=== PATIENT | female | born 1950 | race Caucasian/White ===

== ENCOUNTER → 2024-05-19 | Outpatient (CLI) | payer MEDICARE, SELFPAY ==
[2024-05-19 14:36] LABS: Free T4 (Free Thyroxine) 1.16 ng/dL (0.89-1.76); Thyroid Stimulating Hormone 0.02 uIU/mL (0.55-4.78); Vitamin D 25 Hydroxy Total 93.2 ng/mL (7.3-40.2)
[2024-05-30 06:50] LABS: Estradiol, Ultrasensitive* 3 pg/mL; Estrogen, Total, Serum* <25 pg/mL; Progesterone,LC/MS* <0.1 ng/mL; Testosterone,Total* 47 ng/dL (2-45)
== END | disposition home or self-care (01) ==
PROVIDERS: PCP Family Medicine; Referring Provider Family Medicine; Visit Provider Family Medicine
DX: E03.9 Hypothyroidism, unspecified (principal); C50.919 Malignant neoplasm of unspecified site of unspecified female breast; T45.2X1A Poisoning by vitamins, accidental (unintentional), initial encounter
CPT/HCPCS: 36415; 82306; 82670; 82672; 84144; 84403; 84439; 84443

== ENCOUNTER 2024-06-15 18:44 | Emergency (ER) | payer MEDICARE, SELFPAY ==
--- NOTE | 2024-06-15 18:54 | EKG_ITS ---
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
[2024-06-15 18:55] VITALS: BP 134/99; PULSE 84; RESP 18; O2SAT 100
--- NOTE | 2024-06-15 18:57 | EDNOTE_ITS ---
ED Syncope RME/HPI General Chief Complaint: Nausea/Vomiting/Diarrhea Stated Complaint: NAUSEA/VOMITING W/ SYNCOPE EPISODE Time Seen by Provider: 06/15/24 18:54 Arrival date/time: 06/15/24 18:44 RME / HPI RME / HPI narrative: Dr. Villarreal?s Main ED Evaluation: Patient is a 74-year-old female with history of GERD who was brought to the emergency department via EMS after syncopal episode at home. Patient was with family for Thanksgiving dinner when she suddenly became lightheaded and felt ill. She then sat down, became nauseated and vomited. Shortly thereafter she lost consciousness for about 5 minutes per family. When EMS arrived the patient was conscious, had normal vital signs save for mild hypertension. She was in no acute distress. Patient denies significant medical history other than GERD and a history of breast cancer. She states that she had 2 alcoholic drinks this evening but otherwise everything was as normal. Patient denies chest pain or equivalent, diarrhea, dyspnea, nausea or vomiting. She denies fevers, shakes, chills, sweats. Related Data Home Medications ?Medication ?Instructions ?Recorded ?Confirmed thyroid (pork) 60 mg tablet 120 mg PO QDAY 12/16/18 09/28/22 (Strong Thyroid) Methylcobalamin See Rx Instructions .Route .COMPLEX 06/26/22 09/28/22 pantoprazole 40 mg tablet,delayed 40 mg PO DAILY 06/26/22 09/16/22 release Previous Rx's ?Medication ?Instructions ?Recorded azithromycin 250 mg tablet 250 mg PO QDAY 6 days #6 tabs 06/16/24 (Zithromax) Allergies Allergy/AdvReac Type Severity Reaction Status Date / Time codeine Allergy Verified 09/28/22 14:57 Review of Systems Review of Systems Systems Reviewed: All systems reviewed, normal except as documented Past Medical History Past Medical History NEUROLOGIC: Positive Neurological Disorders, Peripheral Neuropathy and Migraine; Negative Seizures CARDIAC: Positive Hypotension; Negative Cardiac Disorders, Hypercholesterolemia, Congestive Heart Failure or Hypertension RESPIRATORY: Negative Chronic Obstructive Pulmonary Disease (COPD), Asthma or Sleep Apnea GASTROINTESTINAL: Positive Gastrointestinal Disorders (DYSPHAGIA) GENITOURINARY: Negative Genitourinary Disorders or Renal Disease MUSCULOSKELETAL: Positive Musculoskeletal Disorders ENDOCRINE: Positive Hypoglycemia and Hypothyroidism; Negative Diabetes Mellitus Type 1 or Diabetes Mellitus Type 2 HEMATOLOGIC: Positive Anemia; Negative Sickle Cell Disease OTHER HISTORY: Negative Blood Transfusions, Anesthesia Reactions or Cancer Surgical History SURGICAL: Positive Hysterectomy; Negative Cardiac Surgery Social History SMOKING STATUS: Never smoker ED Exam Narrative Physical exam: GENERAL APPEARANCE: alert and oriented x 4, well-developed, well-nourished, appears lightheaded, no acute distress VITALS: All vitals were reviewed and the pulse ox is % on room air, which is normal according to my interpretation. HEENT: Normocephalic, atraumatic; pupils equal, round, reactive to light; EOMI; mucous membranes pink, moist; oropharynx clear NECK: Supple LUNGS: CTABL; no wheezes, no rales, no rhonchi HEART: Regular rate, regular rhythm; normal S1, S2; no murmurs ABDOMEN: non distended; normal BS; soft, no tenderness, no guarding, no rebound; no masses, no organomegaly, no hernia BACK: no CVA tenderness EXTREMITIES: atraumatic; no edema NEUROLOGIC: awake; alert and oriented x4; cranial nerves II-XII grossly intact; no focal sensory or motor deficits PSYCHIATRIC: appropriate mood and affect SKIN: warm, dry, normal color; no rashes Course Course Course Narrative: CXR is ordered to r/o aspiration pneumonia. Quality Measures none Orders Category Date Time Status CT Screening NOW Care 06/15/24 20:20 Completed Intensive Care Medicine Specialist STAT Care 06/15/24 18:55 Completed EKG (ED ONLY) *Do not use* NOW Care 06/15/24 18:55 Completed Insert IV STAT Care 06/15/24 18:55 Completed Orthostatic Vitals NOW Care 06/15/24 18:[address] angio chest Stat Exams 06/15/24 20:20 Completed EKG (ED Only) Stat Exams 06/15/24 18:54 Draft XR chest 1V portable Stat Exams 06/15/24 18:56 Completed Alcohol, Blood Medical Stat Lab 06/15/24 19:36 Completed B-Type Natriuretic Peptide Stat Lab 06/15/24 19:36 Completed CBC Stat Lab 06/15/24 19:36 Completed Comprehensive Metabolic Panel Stat Lab 06/15/24 19:36 Completed Drug Screen,Urine Stat Lab 06/15/24 20:19 Completed Free T4 (Free Thyroxine) Stat Lab 06/15/24 19:36 Completed Lipase Stat Lab 06/15/24 19:36 Completed Magnesium Stat Lab 06/15/24 19:36 Completed Partial Thromboplastin Time Stat Lab 06/15/24 20:53 Completed Prothrombin Time with INR Stat Lab 06/15/24 20:53 Completed Thyroid Stimulating Hormone Stat Lab 06/15/24 19:36 Completed Troponin I Stat Lab 06/15/24 19:36 Completed Urinalysis Stat Lab 06/15/24 20:19 Completed Urinalysis, C/S if Indicated Stat Lab 06/15/24 20:19 Completed Sodium Chloride 0.9% 1000 ml [Ns] 1,000 ml Med 06/15/24 18:54 Discontinued IV 999 mls/hr Vital Signs Vital signs: Vital Signs Pulse Rate 84 06/15/24 18:55 Respiratory Rate 18 06/15/24 18:55 Blood Pressure 134/99 H 06/15/24 18:55 Pulse Oximetry (%) 100 06/15/24 18:55 Oxygen Delivery Method Room Air 06/15/24 18:55 Syncope MDM Narrative MDM Narrative:: Workup for syncope and chest pain has been ordered. Alcohol level ordered. Urine and urine drug screen. Patient data External records reviewed:: [facility] previous records (Per chart review, patient has no relevant previous ED visits or admissions to this facility.) Clinical information provided by:: patient Social determinants that could affect healthcare access:: none Patient has the following chronic illnesses:: breast CA, seizures, peripheral neuropathy, hypothyroidism How is presenting disease/condition affected by chronic disease/condition?: exacerbated by Evaluation data The following diagnostics were reviewed and interpreted by me:: lab results, radiology exam(s) and EKG tracing(s) Lab and/or radiology exams considered but not ordered:: none Interpretation Summary: CBC is normal, CMP is normal, PT and INR are normal, PTT is normal, UA shows 305 RBCs and 6 WBCs, UDS is negative, Blood alcohol is negative, according to my interpretation. EKG 19:45 normal sinus rhythm at 77. Normal axis no ectopy. No signs of acute ischemic changes. ----- [facility] Report Signed Patient: BHARTI SARAH [facility]. Record#: [id number] Birthdate: 1950 Age/Sex: 74 / F Location: [facility] Attending Dr: Ordering Physician: Oskar Villarreal MD Date of Service: 06/15/24 Procedure(s): XR chest 1V portable Accession Number(s): [id number] cc: Andrea Zapata MD; Randell Ritchie MD; Oskar Villarreal MD~ Examination: AP chest single view Technique: AP portable upright chest single view Exam date and time: June 15, 2024 1905 hrs. Comparison December 16, 2018 Indications: Chest pain today. Findings: Pulmonary scarring versus pneumonia left base, clinical correlation advised Normal heart size No pulmonary edema Moderate osteopenia Impression: Pulmonary scarring versus pneumonia left base, clinical correlation advised Dictated By: Randell Ritchie MD Signed By: <Electronically signed by Randell Ritchie MD in OV> 06/15/242130 ------- [facility] Report Signed Patient: BHARTI SARAH Record#: [id number] Birthdate: 1950 Age/Sex: 74 / F Location: [facility] Attending Dr: Ordering Physician: Oskar Villarreal MD Date of Service: 06/15/24 Procedure(s): CT angio chest Accession Number(s): [id number] cc: Andrea Zapata MD; Randell Ritchie MD; Oskar Villarreal MD~ Examination: CTA chest with intravenous contrast 2-D reconstructions 3-D reconstructions, vascular Date and time of exam: June 07, 2024 10:16 PM Indications: Chest pain nausea shortness of breath syncopal episode CTDI: vol (mGy) 7.94 DLP: (mGycm) 307 Technique: Multiple axial sections of the thorax have been obtained. 3 mm slice thickness, from below the hemidiaphragms to above the apices of the lungs. Mediastinal and lung density settings have been obtained. 2-D sagittal and coronal reconstructions. 3-D angiographic renderings, 3-D volume renderings, 3D post processing, vascular maximum intensity projections obtained. Contrast administered is 100 cc Isovue-370. Low dose protocols were performed. One or more of the following dose reduction techniques were used; automated exposure control, adjustment of the mA and/or KV according to patient size, use of iterative reconstruction technique. Findings: No thoracic aortic aneurysm dilatation or dissection No pulmonary artery emboli No paratracheal tracheobronchial or bronchopulmonary adenopathy 4 mm soft pulmonary nodule right midlung 6 mm pulmonary nodule right middle lobe 6 mm pulmonary nodule lingular segment left upper lobe Pneumonia left base Dilated bronchi in the lower lung zones No visualized liver or splenic lesion Absent gallbladder No pancreatic mass No hydronephrosis Sclerotic focus T7 vertebral body 20 mm Impression: Negative for pulmonary artery emboli Subcentimeter pulmonary nodules likely metastatic disease Left base pneumonia T7 osteoblastic metastasis Dictated By: Randell Ritchie MD Signed By: <Electronically signed by Randell Ritchie MD in OV> 06/15/24 4482 Medications / Prescriptions Medications or Prescriptions considered but not ordered:: none Medication administrations:: Medication Administration History Discontinued Medications Sodium Chloride (Ns) 1,000 mls @ 999 mls/hr IV .Q1H1M ONE Stop: 06/15/24 19:54 Last Infusion: 06/15/24 21:18 Dose: Infused Documented By: Admin: 06/15/24 19:59 Dose: 999 mls/hr Documented By: TIARA see above Consultations Consultation(s) initiated? (list below): No Diagnosis Syncope Differential Diagnosis: vasovagal syncope, pulmonary embolism, dehydration and other (pneumonia, worsening CA vs metastatic disease) Most likely diagnosis given after review of the tests above:: see below Admission Indicated Admission indicated?: not indicated Admission Request Was there a request for admission?: No Disposition Plan Disposition Plan: Discharge Discharge Attestation Discharge Attestation: The patient and all family members were given an opportunity to ask questions and understood the discharge instructions. Discharge instructions specifically effects, indications for sooner follow up or return to the emergency department, and the expected course of current diagnosis. Patient condition: Stable Discharge Plan Plan Patient Disposition: HOME (Self Care) Disposition Comment: Stable for discharge Patient condition on transfer: Stable Prescriptions/Referrals Prescriptions/Med Rec: New azithromycin [Zithromax] 250 mg tablet 250 mg PO QDAY 6 Days Qty: 6 0RF Rx Instructions: start on day 2 of therapy No Action thyroid (pork) [Strong Thyroid] 60 mg Tablet 120 mg PO QDAY pantoprazole 40 mg tablet,delayed release (DR/EC) 40 mg PO DAILY Patient Comments: TAKE 1 TABLET BY MOUTH EVERY MORNING Methylcobalamin See Rx Instructions .ROUTE .COMPLEX Rx Instructions: 150 mg intramuscular once per week Referrals: Andrea Zapata MD [Primary Care Provider] - In 1 week Problem List Clinical Impression: Syncope, Pneumonia, Lung mass Patient/Caregiver Discharge Instructions Discharge Activity: activity as tolerated Education Materials: Causes of Syncope, Diagnosing Syncope, Dizziness Fainting Poss Causes, ED Pneumonia (Adult) Additional Instructions: You should follow-up with your oncologist within the next week or so. Please tell him about your visit today and about the CAT scan of your chest Please take all of your antibiotics until they are completely gone even if you feel better before that Please return to the ER if you notice any worsening at all or if you develop any new medical problems Please be sure to follow-up with Dr. Ruvalcaba. He is a educational technologist. Print Language: Afghan Stand Alone Forms: [facility] Award Info., Patient Portal Info Letter
[2024-06-15 19:46] VITALS: BP 106/71; BP 113/69; BP 119/69; PULSE 84; PULSE 86; PULSE 99
[2024-06-15] MEDS: SODIUM CHLORIDE 0.9% 1000 ML 1,000 ML 999 ML IV (19:59)
[2024-06-15 20:01] VITALS: PULSE 81; RESP 18; TEMP 36.6; O2SAT 100
[2024-06-15 20:04] LABS: Basophils % (Auto) 0 % (0-2.5); Eosinophils % (Auto) 1 % (0-10); Hematocrit 42.2 % (36.0-46.0); Hemoglobin 14.4 g/dL (12.0-16.0); Immature Granulocytes % (Auto) 0 % (0-0); Immature Granulocytes Auto 0.02 Thou/mm3 (0.00-0.00); Lymphocytes # (Auto) 0.9 Thou/mm3 (1.0-4.8); Lymphocytes % (Auto) 11 % (10-50); Mean Corpuscular HGB Conc 34.1 g/dl (31.0-37.0); Mean Corpuscular Hemoglobin 31.9 pg (25.0-35.0); Mean Corpuscular Volume 93 fL (80-100); Monocytes # (Auto) 0.4 Thou/mm3 (0.0-0.8); Monocytes % (Auto) 4 % (0-12); Neutrophils # (Auto) 7.5 Thou/mm3 (1.8-7.7); Neutrophils % (Auto) 84 % (37-80); Nucleated Red Blood Cell % 0 /100 WBC (0); Platelet Count 252 Thou/mm3 (140-440); RDW Standard Deviation 45.1 fL (36.4-46.3); Red Blood Count 4.52 Miln/mm3 (4.00-5.20); White Blood Count 8.9 Thou/mm3 (3.6-11.0)
--- NOTE | 2024-06-15 20:20 | XR_ITS ---
Examination: CTA chest with intravenous contrast 2-D reconstructions 3-D reconstructions, vascular Date and time of exam: June 07, 2024 10:16 PM Indications: Chest pain nausea shortness of breath syncopal episode CTDI: vol (mGy) 7.94 DLP: (mGycm) 307 Technique: Multiple axial sections of the thorax have been obtained. 3 mm slice thickness, from below the hemidiaphragms to above the apices of the lungs. Mediastinal and lung density settings have been obtained. 2-D sagittal and coronal reconstructions. 3-D angiographic renderings, 3-D volume renderings, 3D post processing, vascular maximum intensity projections obtained. Contrast administered is 100 cc Isovue-370. Low dose protocols were performed. One or more of the following dose reduction techniques were used; automated exposure control, adjustment of the mA and/or KV according to patient size, use of iterative reconstruction technique. Findings: No thoracic aortic aneurysm dilatation or dissection No pulmonary artery emboli No paratracheal tracheobronchial or bronchopulmonary adenopathy 4 mm soft pulmonary nodule right midlung 6 mm pulmonary nodule right middle lobe 6 mm pulmonary nodule lingular segment left upper lobe Pneumonia left base Dilated bronchi in the lower lung zones No visualized liver or splenic lesion Absent gallbladder No pancreatic mass No hydronephrosis Sclerotic focus T7 vertebral body 20 mm Impression: Negative for pulmonary artery emboli Subcentimeter pulmonary nodules likely metastatic disease Left base pneumonia T7 osteoblastic metastasis
[2024-06-15 20:33] LABS: B-Type Natriuretic Peptide 34 pg/mL (0-100)
[2024-06-15 20:35] LABS: Collection Type, Urine Clean Catch
[2024-06-15 20:38] VITALS: BMI 20.7
[2024-06-15 20:49] LABS: Alanine Aminotransferase 15 U/L (10-49); Albumin, Serum 4.9 gm/dL (3.4-4.8); Alcohol, Blood Medical < 3.0 mg/dL (0-10.0); Alkaline Phosphatase 181 U/L (46-116); Anion Gap 9 (7-16); Aspartate Amino Transferase 17 U/L (0-34); BUN/Creatinine Ratio 35 Ratio (12-20); Bilirubin,Total 0.3 mg/dL (0.3-1.2); Blood Urea Nitrogen 28 mg/dL (9-23); Calcium 9.8 mg/dL (8.3-10.6); Calcium (Corrected) 9.8 mg/dL (8.5-10.1); Carbon Dioxide 26.6 mMol/L (20.0-31.0); Chloride 103 mMol/L (98-107); Creatinine (Component) 0.8 mg/dL (0.6-1.3); Estimated Creatinine Clearance 51.7 mL/min (>60); Globulin 2.5 gm/dL (2.3-3.5); Glucose 91 mg/dL (74-106); Lipase 60 U/L (12-53); Magnesium 2.4 mg/dL (1.6-2.6); Osmolality,Calculated 283 (275-295); Potassium 3.5 mMol/L (3.4-5.1); Sodium 139 mMol/L (136-145); Total Protein 7.4 gm/dL (5.7-8.2); eGFR > 60 See Note
[2024-06-15 20:49] LABS: Amphetamine/Methamp Scrn,U Negative (Negative); Barbiturate Screen,Urine Negative (Negative); Benzodiazepines Screen,Urine Negative (Negative); Benzoylecgonine Screen, Ur Negative (Negative); Bilirubin,Urine Negative (Negative); Blood,Urine 2+ (Negative); Clarity,Urine Clear (Clear/Hazy); Culture Indicated,Urine Not Indicated; Fentanyl Screen,Urine Negative (Negative); Glucose, Urine Negative (Negative); Ketones,Urine Trace (Negative); Leukocyte Esterase,Urine Positive (Negative); Nitrite,Urine Negative (Negative); Opiate Screen,Urine Negative (Negative); Protein,Urine Trace (Neg - Trace); RBC,Urine 305 /hpf (0-3); Specific Gravity,Urine 1.029 (1.001-1.035); Squamous Epithelial Cell,Urine < 1 /hpf (0-5); THC Screen,Urine Negative (Negative); Urobilinogen,Urine Negative mg/dL (0.0-1.0); WBC,Urine 6 /hpf (0-5)
[2024-06-15 21:10] LABS: Thyroid Stimulating Hormone < 0.01 uIU/mL (0.55-4.78); Troponin I < 0.020 ng/mL (0.0-0.045)
--- NOTE | 2024-06-15 21:23 | PC.NURSE ---
Pt resting quietly. no distress noted. Wating for CT.
[2024-06-15 21:28] LABS: Partial Thromboplastin Time 22.7 Seconds (22.0-36.0); Prothrombin Time 10.9 Seconds (9.0-12.2)
[2024-06-15 21:35] LABS: Free T4 (Free Thyroxine) 1.29 ng/dL (0.89-1.76)
[2024-06-15 22:21] VITALS: BP 126/81; PULSE 74; RESP 18; TEMP 36.7; O2SAT 99
[2024-06-16 00:29] VITALS: BP 146/88; PULSE 90; RESP 18; TEMP 36.7; O2SAT 100
--- NOTE | 2024-06-16 00:33 | PC.NURSE ---
ED MD with pt now.. all results are posted. Pt will be discharged.
[2024-06-16 01:09] VITALS: PULSE 85; RESP 18; O2SAT 98
== END 2024-06-16 01:11 | disposition home or self-care (01) ==
PROVIDERS: Emergency Provider Emergency Medicine; PCP Family Medicine
DX: J18.9 Pneumonia, unspecified organism (principal); C79.51 Secondary malignant neoplasm of bone; R91.8 Other nonspecific abnormal finding of lung field; R94.31 Abnormal electrocardiogram [ECG] [EKG]; I10 Essential (primary) hypertension; Z85.3 Personal history of malignant neoplasm of breast
CPT/HCPCS: 36415; 71045; 71275; 80053; 80307; 80320; 81001; 83690; 83735; 83880; 84439; 84443; 84484; 85025; 85610; 85730; 93005; 99285; A4649; J7030; Q9967; G0480

== ENCOUNTER → 2024-08-02 | Outpatient (CLI) | payer MEDICARE, SELFPAY ==
--- NOTE | 2024-08-02 14:30 | XR_ITS ---
Examination: Breast ultrasound, unilateral, left complete Date and time of exam: August 02, 2024 1436 hours INDICATIONS: Personal history right breast cancer with mastectomy, mammogram August 05, 2022 suspicious matter retroareolar region right breast left breast 3:00 nodule circumscribed Technique: Real-time schmidt scale ultrasonographic imaging performed left breast including all 4 quadrants as well as nipple retroareolar and axillary region. Findings: 12:00 cyst 6 x 4 mm 4:00 cyst 5 x 5 mm Retroareolar circumscribed oval mass 7 x 5 mm IMPRESSION: BI-RADS Category 3: Probably benign findings One additional 6 month left breast sonogram follow-up is needed to document stability of retroareolar circumscribed oval mass 7 x 5 mm
--- NOTE | 2024-08-02 15:00 | XR_ITS ---
Examination: Diagnostic digital mammography, unilateral, left Computer aided detection 3-D breast Tomosynthesis, unilateral Date and time of exam: August 02, 2024 1514 hours Compared to mammograms dating to June 23, 2022 INDICATIONS: Personal history right breast cancer mastectomy 2022 Technique: Nonmagnified MLO, CC views of the left breast have been obtained, reconstructed from 3-D Tomosynthesis images. R2 computer aided detection program utilized for evaluation of suspicious masses and/or abnormal calcifications. 3-D Tomosynthesis images obtained. Findings: The breast is heterogeneously dense, which may obscure small masses Numerous calcifications 8 mm focal asymmetry retroareolar region left breast, corresponding to retroareolar oval mass 7 x 5 mm left breast sonogram today Impression: BI-RADS category 3: Probably benign findings Recommend 1 additional 6 month left mammogram follow-up to document stability of focal asymmetry retroareolar region left breast
== END | disposition home or self-care (01) ==
PROVIDERS: PCP Family Medicine; Referring Provider Internal Medicine Hematology; Visit Provider Internal Medicine Hematology
DX: N64.89 Other specified disorders of breast (principal); N63.42 Unspecified lump in left breast, subareolar; C50.111 Malignant neoplasm of central portion of right female breast
CPT/HCPCS: 76641; 77061; 77065; G0279

== ENCOUNTER → 2024-09-27 | Outpatient (CLI) | payer MEDICARE, SELFPAY ==
--- NOTE | 2024-09-27 14:00 | XR_ITS ---
Examination: CT chest with intravenous contrast 2-D sagittal and coronal reconstructions Exam date and time: September 27, 2024 1459 hrs. Comparison June 15, 2024 Indications: Right breast carcinoma diagnosis, T7 osteoblastic metastasis, subcentimeter pulmonary nodules on CT chest June 07, 2024 CTDI:vol (mGy) 7.60 DLP: (mGycm) 264 Technique: Multiple axial sections of the thorax have been obtained. Sections have been obtained, 3 mm slice thickness. Mediastinal and lung density settings have been obtained. Intravenous contrast administered, 60 cc Isovue-370. 2-D sagittal, coronal images obtained. Low dose protocols were performed. One or more of the following dose reduction techniques were used; automated exposure control, adjustment of the mA and/or KV according to patient size, use of iterative reconstruction technique. Findings: No thoracic aortic aneurysmal dilatation No pulmonary artery filling defects No paratracheal tracheobronchial or bronchopulmonary adenopathy No new pulmonary nodules No pneumonia or pulmonary edema Minor atelectasis in the lower lung zones Absent gallbladder Fatty liver cysts No hydronephrosis Impression: No interval mediastinal lymphadenopathy No new pulmonary nodules compared with June 15, 2024 Consider 3 month follow-up PA lateral chest x-ray
[2024-09-27 14:54] LABS: Alanine Aminotransferase 17 U/L (10-49); Albumin, Serum 4.5 gm/dL (3.4-4.8); Albumin/Globulin Ratio 1.7 (1.2-2.2); Alkaline Phosphatase 156 U/L (46-116); Anion Gap 6 (7-16); Aspartate Amino Transferase 20 U/L (0-34); BUN/Creatinine Ratio 29 Ratio (12-20); Bilirubin,Total 0.5 mg/dL (0.3-1.2); Blood Urea Nitrogen 23 mg/dL (9-23); Calcium 9.5 mg/dL (8.3-10.6); Calcium (Corrected) 9.5 mg/dL (8.5-10.1); Chloride 104 mMol/L (98-107); Creatinine (Component) 0.8 mg/dL (0.6-1.3); Globulin 2.6 gm/dL (2.3-3.5); Glucose 94 mg/dL (74-106); Osmolality,Calculated 283 (275-295); Potassium 3.7 mMol/L (3.4-5.1); Sodium 140 mMol/L (136-145); Total Protein 7.1 gm/dL (5.7-8.2); eGFR > 60 See Note
== END | disposition home or self-care (01) ==
LOC: CCTX 13:47
PROVIDERS: PCP Family Medicine; Referring Provider Nurse Practitioner; Visit Provider Nurse Practitioner
DX: C50.111 Malignant neoplasm of central portion of right female breast (principal)
CPT/HCPCS: 36415; 71260; 80053; A4649; Q9967

== ENCOUNTER → 2024-12-27 | Outpatient (CLI) | payer MEDICARE, SELFPAY ==
--- NOTE | 2024-12-27 14:00 | XR_ITS ---
Examination: Breast ultrasound, unilateral, left complete Date and time of exam: December 27, 2024 1348 hours INDICATIONS: Personal history right breast cancer mastectomy 1.5 years ago, mammogram August 05, 2022 suspicious mass retroareolar region right breast, left breast sonogram August 02, 2024 retroareolar nodule 8 mm Technique: Real-time schmidt scale ultrasonographic imaging performed left breast including all 4 quadrants as well as nipple retroareolar and axillary region. Findings: 4:00 cyst 6 x 5 mm Retroareolar nodule with calcifications 7 x 3 x 6 mm IMPRESSION: BI-RADS Category 2: Benign findings
--- NOTE | 2024-12-27 14:30 | XR_ITS ---
Examination: Diagnostic digital mammography, unilateral, left Computer aided detection 3-D breast Tomosynthesis, unilateral Date and time of exam: December 27, 2024 1405 hours Compared to mammograms dating to June 23, 2022 Technique: Nonmagnified MLO, CC views of the left breast have been obtained, reconstructed from 3-D Tomosynthesis images. R2 computer aided detection program utilized for evaluation of suspicious masses and/or abnormal calcifications. 3-D Tomosynthesis images obtained. Findings: The breast is heterogeneously dense, which may obscure small masses Benign calcifications 10 mm focal asymmetry outer left breast CC view, 5.6 cm from the nipple Impression: BI-RADS category 0: Incomplete: Need additional imaging evaluation 10 mm focal asymmetry outer left breast CC view, 5.6 cm from the nipple, recommend follow-up spot tomographic views upper outer quadrant left breast, left breast sonography to complete the workup
== END | disposition home or self-care (01) ==
LOC: CDIM 13:26
PROVIDERS: PCP Family Medicine; Referring Provider Internal Medicine Hematology & Oncology; Visit Provider Internal Medicine Hematology & Oncology
DX: R92.1 Mammographic calcification found on diagnostic imaging of breast (principal); N63.42 Unspecified lump in left breast, subareolar; N60.02 Solitary cyst of left breast; C50.111 Malignant neoplasm of central portion of right female breast
CPT/HCPCS: 76641; 77061; 77065; G0279